=== PATIENT | female | born 1965 | race Caucasian/White ===

== ENCOUNTER 2019-08-14 05:51 | Day surgery (SDC) | payer OTHER ==
[2019-08-13 14:28] VITALS: BMI 46.4
[2019-08-14] VITALS (10 sets, daily range): BP systolic 131–174; BP diastolic 71–88; PULSE 72–87; RESP 13–21; Ht 162.6 cm; Wt 115.5 kg
[~2019-08-14] VITALS: Ht 162.6 cm; Wt 115.5 kg
[~2019-08-14 05:51] MED LIST: BENA20TA4; IBUP200C11 PO; OMEP20CA17 PO; PAIN MED
[2019-08-14] MEDS ORDERED: CEFAZOLIN 2 GM/50 ML (PMX) 50 ML IVPB ONE (07:00)
[2019-08-14] MEDS ORDERED: POLYMYXIN/BACITRACIN 1L IRRIG ONE (07:03)
[2019-08-14] MEDS ORDERED: BUPIVACAINE 0.5% (SDV) 30 ML INJ ONE (07:03)
[2019-08-14] MEDS ORDERED: SEVOFLURANE 15 MIN ONE (07:30)
[2019-08-14] MEDS ORDERED: MIDAZOLAM 1 MG/ML 2 ML INJ ONE (07:50)
[2019-08-14] MEDS ORDERED: PROPOFOL 20 ML ONE (10:07)
[2019-08-14] MEDS ORDERED: ONDANSETRON 4 MG INJ ONE (10:07)
[2019-08-14] MEDS ORDERED: CEFAZOLIN 1 GM INJ ONE (10:07)
[2019-08-14] MEDS ORDERED: LIDOCAINE 2% (SDV) 5 ML INJ ONE (10:07)
[2019-08-14] MEDS ORDERED: DIPHENHYDRAMINE 50 MG INJ IV PRN (10:30)
[2019-08-14] MEDS ORDERED: HYDROmorphONE 1 MG/5 ML IV SYRINGE IV PRN ×2 (10:30)
[2019-08-14] MEDS ORDERED: LABETALOL HCL 20MG INJ IV PRN (10:30)
[2019-08-14] MEDS ORDERED: MEPERIDINE 25 MG INJ IV PRN (10:30)
[2019-08-14] MEDS ORDERED: ONDANSETRON 4 MG INJ IV PRN (10:30)
[2019-08-14] MEDS ORDERED: METOCLOPRAMIDE 10 MG INJ IV PRN (10:30)
[2019-08-14] MEDS ORDERED: FENTAnyl 50 MCG/ML VIAL IV PRN (10:30)
[2019-08-14] MEDS ORDERED: OXYCODONE/ACETAMINOPHEN (5/325) TAB PO ONE ×2 (12:00)
== END 2019-08-14 13:30 | disposition home or self-care (01) ==
LOC: SDS 05:51
PROVIDERS: ATTEND Podiatrist Foot & Ankle Surgery
DX: S86.111A Strain of other muscle(s) and tendon(s) of posterior muscle group at lower leg level, right leg, initial encounter (principal); M21.41 Flat foot [pes planus] (acquired), right foot; X58.XXXA Exposure to other specified factors, initial encounter; E66.01 Morbid (severe) obesity due to excess calories; Z68.41 Body mass index [BMI] 40.0-44.9, adult
CPT/HCPCS: 27658; 28725; 73620; 73630; 88304; J0690; J2250; J2405; J3010; Z7512; Z7610